=== PATIENT | male | born 1955 | race Two or more races ===

== ENCOUNTER 2021-12-31 06:58 | Emergency (ER) | payer OTHER, MEDICAID ==
[~2021-12-31] VITALS: Ht 172.7 cm; Wt 74.8 kg
[2021-12-31 07:25] VITALS: BP 140/78
[2021-12-31] MEDS ORDERED: FLUORESCEIN SOD OPTH TEST STRIP ONE (07:34)
[2021-12-31] MEDS ORDERED: TETRACAINE HCL 0.5% OPTH(EYE) SOLN 4ML RIGHTEYE ONE (07:45)
[2021-12-31] MEDS ORDERED: FLUORESCEIN SOD OPTH TEST STRIP RIGHTEYE ONE (07:45)
[2021-12-31] MEDS ORDERED: CIP03OS RIGHTEYE (07:56)
== END 2021-12-31 08:02 | disposition home or self-care (01) ==
LOC: ER 06:58
DX: S05.01XA Injury of conjunctiva and corneal abrasion without foreign body, right eye, initial encounter (principal); E11.9 Type 2 diabetes mellitus without complications; E78.5 Hyperlipidemia, unspecified; I10 Essential (primary) hypertension; X58.XXXA Exposure to other specified factors, initial encounter; Y93.89 Activity, other specified; Y92.89 Other specified places as the place of occurrence of the external cause; Y99.8 Other external cause status